=== PATIENT | male | born 1935 | race Caucasian/White ===

== ENCOUNTER 2017-05-31 05:35 | Day surgery (SDC) | payer OTHER ==
[~2017-05-31] VITALS: Ht 180.3 cm; Wt 106.1 kg
--- NOTE | ~2017-05-31 | O ---
[facility] [place] [address] OPERATIVE REPORT Name: VIVIAN GEORGE Room #: DE[place] [facility] M.R.#: [id number] Admission: 05/31/17 Attend Phys: Jan Jones MD, Discharge: 05/31/17 Date of : 35 Report #: [id number] THIS REPORT FOR: //name// CC: Heidi Jones DATE OF SERVICE: 05/31/2017 PREOPERATIVE DIAGNOSES: 1. Bilateral inguinal hernias. 2. Recurrent incisional ventral hernia at the umbilicus. POSTOPERATIVE DIAGNOSES: 1. Small pantaloon (both direct and indirect) left inguinal hernia. 2. Large indirect right inguinal hernia. 3. Incarcerated recurrent incisional ventral hernia at the umbilicus. 4. Intraabdominal adhesions. PROCEDURES PERFORMED: 1. Laparoscopic repair of an incarcerated recurrent incisional ventral hernia with mesh. 2. Laparoscopic transabdominal preperitoneal (RACHEL) repair of bilateral inguinal hernias with mesh. 3. Extensive laparoscopic lysis of adhesions lasting 49 minutes. 4. This is a modifier 22 procedure for extreme difficulty of procedure secondary to the lengthy laparoscopic lysis of adhesions in a patient with truncal obesity and extremely large chronic right inguinal hernia that necessitated nearly an hour and half worth of work to reduce the hernia sac and repair of the hernia appropriately. This is in addition to necessitating placement of additional trocars for repair of the incarcerated recurrent incisional ventral hernia at the umbilicus which was a separate procedure. SURGEON: Jan Jones M.D. PAPER MACHINE TENDER: Alberto Foster M.D. ANESTHESIA: General endotracheal anesthesia. ESTIMATED BLOOD LOSS: Minimal (less than 10 mL). COMPLICATIONS: None appreciated. SPECIMENS: Incarcerated recurrent incisional ventral hernia contents from the umbilicus. INDICATIONS: The patient is an 82-year-old male who has truncal [facility] [address] [place] [address] OPERATIVE REPORT Name: VIVIAN GEORGE Room #: DEP [facility]#: [id number] Admission: 05/31/17 Attend Phys: Jan Jones MD, Discharge: 05/31/17 Date of : 35 Report #: [id number] obesity and underwent a prior laparoscopic appendectomy with primary suture repair of a hernia at the umbilicus. The patient did well from that procedure several years ago; however, has had recurrence of bulging at his umbilicus, due to the fact that he was unable to have that hernia repaired with mesh at the time of his appendectomy. Since that time, the patient has been complaining of right inguinal pain with obviously palpable defects in both groins with the right side being much larger than the left which was all consistent with bilateral inguinal hernias. Indication was for all of the above-mentioned procedures today. DESCRIPTION OF PROCEDURE: After explaining the risks, benefits and alternatives of the procedure with the patient in detail in the preoperative holding area and obtaining written consent, the patient was brought to the operating room and placed supine on the operating room table. After conducting a thorough timeout procedure verifying correct patient and procedure, the patient was given general endotracheal anesthesia. Once adequate anesthesia was obtained, SCDs were placed on the patient's bilateral lower extremities and he was given a preoperative dose of antibiotics in line with the SCIP protocol. The patient's abdomen was prepped and draped in standard surgical sterile fashion. 5 mL of 0.5% Marcaine with epinephrine were used to anesthetize the skin in the left flank at the anterior axillary line lateral to the umbilicus. A #15 bladed scalpel was used to create a small skin fanny at this location. A 5 mm Visiport was placed over 0 degree 5 mm laparoscope and was introduced through this incision site. Once intraabdominal placement was verified visually, the obturator for the trocar and laparoscope were both removed and the abdomen was insufflated to 15 mmHg using carbon dioxide gas. The laparoscope was changed to a 5-mm 30-degree laparoscope which was reintroduced through this trocar. The entire abdomen was evaluated to ensure no injury upon entry. We immediately identified incarcerated omentum contained within a recurrent incisional ventral hernia. I was now able to place an additional trocar in the right flank lateral to the umbilicus at the anterior axillary line which was a 5 mm port placed under direct vision in the same way as the initial port of entry. Once this was in place, a laparoscopic grasper was placed in the abdomen and I was able to reduce the omentum that was incarcerated in the recurrent incisional hernia. As I was going to necessitate repair of this recurrent hernia along with suture closure with mesh buttressing, I did elect to place a 12 mm port through the umbilicus for the groin hernia repair at this time. I anesthetized the skin in the infraumbilical location with 10 mL of 0.5% Marcaine with epinephrine and I created a 1 cm transverse skin incision using a #15 bladed scalpel. I now placed a 12 mm port through the skin incision directed through the incisional hernia defect at the umbilicus. The laparoscope was now changed to the 12 mm port and the patient was placed in steep Trendelenburg position. We now turned our attention to the symptomatic left inguinal hernia in question. The patient was placed gently with the left side elevated and using a hook electrocautery, I proceeded to score the peritoneum from just superior to the anterior superior [facility] [address] [address] OPERATIVE REPORT Name: VIVIAN GEORGE Room #: DE[place] [facility] M..#: [id number] Admission: 05/31/17 Attend Phys: Jan Jones MD, Discharge: 05/31/17 Date of : 35 Report #: [id number] iliac spine on the left moving medially across the medial umbilical ligament. I now was able to sweep the peritoneum posteriorly and dissect in the preperitoneal plain all the way down to the pubic tubercle. I was able to easily identify the cord structures on the left, which were preserved and uninjured throughout in the hernia sac, which was small, it was grasped and stripped back down as low on the pelvic brim as possible. Upon continuing this dissection with both blunt dissection and hook electrocautery, we did identify a pantaloon hernia on the left with both small indirect and direct components. Once I had dissected low in the pelvis, I selected a piece of ProGrip mesh tailored to the left side. The mesh was rolled up, placed in the abdomen through the 12 mm port by placing laparoscope in the extreme right flank trocar and then once the mesh was in the abdomen and controlled throughout, so it did not touch bowel. The laparoscope was placed back to the 12 mm port, and I was able to easily maneuver the mesh into the left groin space where it was pressed into the abdominal wall and unrolled inferiorly giving me excellent overlap outside of both hernia defects in question. We now turned our attention to the more symptomatic right side, which was much larger. The patient was now placed with his right side elevated and in similar fashion, I scored the peritoneum with hook electrocautery. I was able to dissect in the preperitoneal plain using combination of blunt dissection and hook electrocautery in similar fashion. The patient's hernia sac was extremely large and chronically inflamed secondary to the longstanding nature of the hernia defect itself. The hernia sac was able to ultimately be stripped down back into an intraabdominal location, which took quite a bit of work in lysing adhesions from the chronic hernia sac to the spermatic cord all the while controlling the cord structures, identifying them and preserving them throughout with no injury to the cord structures themselves. Ultimately, once I was able to fully reduce the hernia sac, which took a significant amount of time to reduce. I carried the dissection as low on the pelvic brim as possible. In similar fashion, I selected a piece of ProGrip mesh this time tailored to the right groin space, which was placed into the abdomen in much the same way as the other side. It was maneuvered into position in the right groin space where it was pressed into the abdominal wall and unrolled inferiorly giving me again excellent overlap outside of the hernia defect in question. I now turned my attention to reperitonealization of the abdominal wall. The secure strap absorbable fixation device was used to place tacks throughout the superior aspect of the flap of peritoneum anchoring it back to the abdominal wall in a band like fashion from the anterior superior iliac spine on the left across the midline to the right. This allowed for no mesh exposure to the intra-abdominal domain except for one small defect in the large hernia sac on the right. An 0 PDS Endoloop was then used to Lasso the hernia sac on the right and was tightened down, completely closing that small defect. Now that we were satisfied with excellent overlap of mesh outside of both hernia defects in the groins, which had photos taken of the hernia defects as well as the corresponding mesh repair, we turned our attention to the incarcerated incisional ventral hernia at the umbilicus. I placed an additional 5 mm trocar in the right upper [facility] [address] [place] [address] OPERATIVE REPORT Name: VIVIAN GEORGE Room #: [facility] [id number] Admission: 05/31/17 Attend Phys: Jan Jones MD, Discharge: 05/31/17 Date of : 35 Report #: [id number] quadrant at a midclavicular line and subcostal location which was placed under direct vision. After anesthetizing the skin at that location with 5 mL of 0.5% Marcaine with epinephrine, I created a small skin fanny using #15 bladed scalpel. Laparoscope was removed, changed to the left lateral flank and hook electrocautery was used to skeletonize posterior aspect of the anterior abdominal wall around the umbilicus, taking down all of the densely adherent preperitoneal fat. Once I had taken all of this down, a peon clamp was placed through the umbilicus after removing the 12 mm port and was able to deliver the specimen through the abdomen through this defect and passed off the field as specimen. The defect itself measured approximately 1.5 x 1.5 cm in dimension. At this juncture, I selected a piece of Ventralight ST mesh that was 8 cm round. The tails of the mesh were cut off and single suture of 0 Vicryl was placed in the center most portion of the mesh. The trocar was replaced at the umbilicus and the mesh was rolled up and placed in the abdomen through this trocar. The Jailene suture passer device was used to grasp the 0 Vicryl suture and pull it up where it was tagged with hemostat externally. The mesh was left to lie well away from the abdominal wall at this juncture, and now proceeded to close the fascial defect using 0 PDS suture on the Isidro-Hermes suture passer device in a [id number] fashion under direct vision laparoscopically. This was tied down completely repairing the fascial defect with the 0 Vicryl suture running through the middle of the suture repair. The 0 Vicryl suture was now pulled up holding the mesh in close approximation with the posterior aspect of the anterior abdominal wall and I proceeded to circumferentially fix the mesh into place using the secure strap absorbable fixation device at 1 cm intervals around the periphery of the mesh as well as having place numerous tacks throughout the innermost portion of the mesh to hold the entire mesh in close approximation with the posterior aspect of the anterior abdominal wall throughout. Photodocumentation of this mesh repair was also taken and provided to the patient and the permanent medical record. One final evaluation of the intra-abdominal domain showed no further evidence of pathology. Both groin hernias were fully reduced with mesh being excellently oriented and overlapping outside of the hernia defects. The mesh repair of the incarcerated recurrent incisional ventral hernia had excellent orientation as well. At the end of the procedure, all instrument, needle and sponge counts were correct. All trocars removed under direct vision. The abdomen was fully desufflated. 4-0 Monocryl was used in a standard subcuticular fashion for all skin incisions and Dermabond glue was applied to all skin wounds. At the end of the procedure, all instrument, needle and sponge counts were correct. The patient tolerated the procedure without incident, was awakened in the operating room, transitioned to the recovery room in stable condition with no apparent complications from this difficult and lengthy procedure that took nearly 2-1/2 hours in duration. <ELECTRONICALLY SIGNED> By: Jan Jones MD, FACS 06/01/17 0851 11 10 Jan Jones MD, FACS /nt
--- NOTE | ~2017-05-31 | EKG ---
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 : 1935 Requested By: Jan Jones Order Number: [id number] MD: Jesus Alberto Shepard Measurements Intervals [place] Rate: 79 P: 41 WV: 226 QRS: -84 QRSD: 149 T: 38 QT: 419 QTc: 481 Interpretive Statements Sinus rhythm Ventricular premature complex Prolonged WV interval RBBB and LAFB Compared to ECG 05/15/2015 04:38:52 Ventricular premature complex(es) now present First degree AV block now present Left anterior fascicular block now present Right bundle-branch block now present Electronically Signed On 05-31-2017 8:24:09 CDT by Jesus Alberto Shepard [email or web address] <ELECTRONICALLY SIGNED> By: Jesus Alberto Shepard MD, FAC 05/31/17 0824 0638 0638 Jesus Alberto Shepard MD, FAC /EPI
--- NOTE | ~2017-05-31 | S ---
[facility] [address] [place] [address] SURGICAL PATH RPT PROCEDURE Name: VIVIAN GEORGE Room #: DEP [facility] M.R.#: [id number] Admission: 05/31/17 Date of : 35 Discharge: 05/31/17 Report #: [id number] Path Case #: [id number] PATHOLOGY REPORT DRAFT COLLECTION DATE: 05/31/2017 RECEIVED DATE: 05/31/2017 SPECIMEN(S) RECEIVED: A.Incarcerated ventral incisional hernia
[~2017-05-31 05:35] MED LIST: ADULT LOW DOSE81 MG PO; CRESTOR20 MG PO; HYDROCODONE-AP1 EAC6 PO; PRILOSEC 20 MG20 MG PO; PRILOSEC20 MG; SENNA S TABLET1 EACH PO; VERAPAMIL SR180 MG PO
[2017-05-31 06:58] LABS: HEMATOCRIT 47.6 % (42.0-52.0); HEMOGLOBIN 16.1 gm/dL (14.0-18.0)
[2017-05-31 08:16] VITALS: BP 132/82
[2017-05-31] MEDS ORDERED: PERCOCET PO (10:53)
[2017-05-31] MEDS ORDERED: NEURONTIN 300300 M1 PO (10:53)
[2017-05-31] MEDS ORDERED: SENOKOT-S1 TA1 PO (10:53)
[2017-05-31 12:05] VITALS: BP 132/82
== END 2017-05-31 13:45 | disposition home or self-care (01) ==
LOC: OR 05:35 → TBA 05:36 → OR 09:19
PROVIDERS: Surgery
DX: K40.20 Bilateral inguinal hernia, without obstruction or gangrene, not specified as recurrent (principal); K43.0 Incisional hernia with obstruction, without gangrene; K66.0 Peritoneal adhesions (postprocedural) (postinfection); E66.9 Obesity, unspecified; Z68.32 Body mass index [BMI] 32.0-32.9, adult; Z79.82 Long term (current) use of aspirin; Z98.890 Other specified postprocedural states
CPT/HCPCS: 50010; 50101; 50249; 50386; 50455; 50555; 50558; 50621; 50984; 51297; 52265; 52266; 53307; 54022; 54118; 54169; 56462; 56524; 56525; 56526; 57092; 62110; 62900; 70005